=== PATIENT | male | born 1960 | race Caucasian/White ===

== ENCOUNTER 2019-08-14 05:06 | Inpatient (IN) ==
--- NOTE | 2019-08-08 10:28 | EKG Report ---
Test Performed on : 08/08/2019 10:19:59 AM Test Reason : PAT Blood Pressure : / mmHG Vent. Rate : 070 BPM Atrial Rate : 070 BPM P-R Int : 188 ms QRS Dur : 092 ms QT Int : 398 ms P-R-T Axes : 017 -09 022 degrees QTc Int : 429 ms Normal sinus rhythm. Normal ECG When compared with ECG of 30-NOV-2012 12:33, Vent. rate has decreased BY 48 BPM Confirmed by Domo MORALES, Shahbaz Pearce ([id number]) on 08/12/2019 9:25:19 AM
[2019-08-08 10:32] LABS: HEMATOCRIT 51.9 % (42.0-52.0); HEMOGLOBIN 17.5 g/dL (14.0-18.0); MCH 28.5 PG (27-31); MCHC 33.7 g/dL (33-37); MCV 84.5 FL (81-99); MPV 11.5 FL (7.4-10.4); RBC 6.14 XMIL (4.7-6.1); RDW 13.9 % (11.5-14.5); WBC 11.79 X1000 (4.8-10.8)
[2019-08-08 10:54] LABS: AGAP 12; BUN 20 mg/dL (8-22); CALCIUM 9.7 mg/dL (8.8-10.2); CHLORIDE 95 mmol/L (98-107); COSMO 279; CREATININE 1.2 mg/dL (0.7-1.2); ESTIMATED GFR > 60; GLUCOSE 109 mg/dL (70-104); POTASSIUM 3.5 mmol/L (3.5-5.1); SODIUM 138 mmol/L (136-145); TCO2 31 mmol/L (25-35)
[2019-08-14] MEDS ORDERED: ENTEREG ONE (05:41)
[2019-08-14] MEDS ORDERED: LR 1,000 ML ONE (05:42)
[2019-08-14] MEDS ORDERED: INVANZ 1 GM/NS 1 GM/50 ML IVPB ONE (05:42)
[2019-08-14] MEDS ORDERED: FENTANYL ONE (06:17)
[2019-08-14] MEDS ORDERED: DIPRIVAN 1% ONE (06:18)
[2019-08-14] MEDS ORDERED: QUELICIN (DOSE) ONE (06:19)
[2019-08-14] MEDS ORDERED: XYLOCAINE-MPF 2% ONE (06:19)
[2019-08-14] MEDS ORDERED: ZOFRAN ONE (06:19)
[2019-08-14] MEDS ORDERED: ZEMURON ONE ×2 (06:19→08:02)
[2019-08-14] MEDS ORDERED: SENSORCAINE-MPF 0.5%/EPI 1:200,000 ONE (06:39)
[2019-08-14] MEDS ORDERED: BRIDION ONE (06:44)
[2019-08-14] MEDS ORDERED: DECADRON ONE (07:11)
[2019-08-14] MEDS ORDERED: OFIRMEV 1000 MG/ISOTONIC SOLN 1,000 MG/100 ML BOTTLE ONE (07:11)
[2019-08-14] MEDS ORDERED: NEO-SYNEPHRINE ONE (07:19)
[2019-08-14 07:45] LABS: URINE SOURCE CATH
[2019-08-14 07:52] LABS: BILIRUBIN URINE NEGATIVE (NEGATIVE); BLOOD URINE TRACE (NEGATIVE); COLOR YELLOW; GLUCOSE URINE NEGATIVE (NEGATIVE); KETONE URINE TRACE mg/dL (NEGATIVE); LEUKOCYTES URINE NEGATIVE (NEGATIVE); NITRITE URINE NEGATIVE (NEGATIVE); PROTEIN URINE NEGATIVE (NEGATIVE); SP GRAVITY URINE 1.021; TURBIDITY URINE CLEAR (CLEAR); UROBILINOGEN URINE NORMAL (NORMAL)
[2019-08-14 07:54] LABS: UR EPITHELIAL CELLS <10 /HPF (<10); URINE BACTERIA NEGATIVE /HPF; URINE RBC <10 /HPF (<10); URINE WBC <10 /HPF (<10)
[2019-08-14] MEDS: DILAUDID ONE ×6 (09:24→10:05)
[2019-08-14] MEDS ORDERED: NS 1,000 ML ONE (09:33)
[2019-08-14] MEDS ORDERED: DILAUDID IV PRN (10:35)
[2019-08-14] MEDS ORDERED: ZOFRAN IV PRN (10:35)
[2019-08-14] MEDS: NS 1,000 ML IV SCH ×4 (12:24→20:21)
--- NOTE | 2019-08-14 14:28 | OPERATIVE NOTE ---
PROCEDURE DATE: 08/14/2019 PROCEDURE PERFORMED: 1. Laparoscopic assisted mobilization of splenic flexure. 2. Open sigmoid colon resection with primary anastomosis. SURGEON: Nicolas Warner MD. CONTRACTS ADMINISTRATOR: David. PREOPERATIVE DIAGNOSIS: Recurrent sigmoid diverticulosis. POSTOPERATIVE DIAGNOSIS: Recurrent sigmoid diverticulosis. DESCRIPTION OF PROCEDURE: Satisfactory general endotracheal anesthesia was achieved. The patient was placed in Thiago stirrups. The abdomen was prepped and draped in a sterile fashion. We anesthetized the skin at each trocar site. We began at the base of the umbilicus, incised the skin, and carried our incision down the fascia, scored the fascia, introduced 11 trocar Optiview technique. We insufflated through this trocar. Under direct visualization, we introduced another 11 trocar in the midepigastrium. We introduced a 5 trocar in the left lower quadrant and one in the right lower quadrant. We placed the patient in Trendelenburg and airplaned him to the right. We then incised the white line of Toldt and used the LigaSure to dissect the adhesions away from the anterior abdominal wall in the left gutter. We extended our incision in the white line of Toldt inferiorly down to the peritoneal reflection we then airplaned to the other direction and scored the peritoneum and again divided the peritoneum down to the peritoneal reflection. We then placed the patient in reverse Trendelenburg and extended our incision along the white line of Toldt up to the splenic flexure. We then retracted the omentum medially and divided the splenocolic ligament. We then raised up the omentum and entered the lesser sac in the mid transverse colon and then began taking the omentum off the distal transverse colon all the way to the splenic flexure. We then incised the tissue to the distal transverse colon so that we could mobilize the splenic flexure and reflected caudad to give us more length. We mobilized the left colon over toward the midline so that we could extend it straight down toward the pelvis as we needed. After completing this mobilization we then flattened the patient and removed our trocars and decompressed the abdomen. We then made an incision from below the umbilicus down to the pubis. We carried our incision through the subcutaneous tissue between the muscle and into the abdominal cavity. The Bookwalter retractor was placed. We were satisfied with the mobilization of our colon. We then chose an area in the distal descending colon where we could clean off the colon, divide it with a NICHOLAS 60 blue cartridge. We then proceeded to divide the mesentery of the sigmoid using the open LigaSure device. We then went from proximal to distal. We stayed relatively close to the colon to preserve the nerves in the pelvis and we then reached the distal extent of our dissection not quite to the peritoneal reflection but the normal appearing proximal rectum or distal sigmoid. It was here we cleaned off the posterior aspect of the colon and then placed our 3-0 silks in a Lembert fashion in the posterior wall of the distal sigmoid and distal descending colon. After placing these stitches we amputated the sigmoid and handed it off. We then excised the staple line proximally so we had the open end of both ends of the colon. We then used a 3-0 Polysorb running locking stitch posteriorly changed to a [place] stitch anteriorly and this completed our inner layer. We then used 3-0 silks in a Lembert fashion anteriorly to complete a 2 layered sewn closure. We were satisfied that there was no excess tension on the suture line. We changed gloves at this point, flattened the patient, irrigated out the pelvis. Hemostasis was satisfactory. We inspected the left upper quadrant and did not see any bleeding from the splenic flexure mobilization. We closed the fascia at the epigastric trocar site with a 2-0 Polysorb stitch. We then proceeded to close the perineum of our hypogastric incision with a running 2-0 Polysorb. We closed the skin at the fascia with a running #2 Prolene. We irrigated the subcutaneous tissue. The skin was then closed at each incision with rosa. Sterile dressings were applied. He tolerated it well and was sent to the recovery room in satisfactory condition. cc: Nicolas Warner MD
[2019-08-14] MEDS: OFIRMEV 1000 MG/ISOTONIC SOLN 1,000 MG/100 ML BOTTLE IV SCH ×2 (14:31→20:22)
[2019-08-14] MEDS: LOVENOX SUBQ SCH (20:22)
[2019-08-14] MEDS: PERIDEX MT SCH (20:22)
--- NOTE | 2019-08-14 22:15 | GENERAL SURGERY PROGRESS NOTE ---
DATE: 08/14/2019 Mr. Callejas is doing generally well. His bandage is dry. His hemodynamics were good. He is comfortable. Plan will be to check his labs in the morning and do a good pulmonary toilet. cc: Nicolas Warner MD
[2019-08-15] MEDS: OFIRMEV 1000 MG/ISOTONIC SOLN 1,000 MG/100 ML BOTTLE IV SCH ×3 (00:58→09:32)
[2019-08-15] MEDS: ULTRAM PO PRN ×3 (06:00→19:06)
[2019-08-15] MEDS: NS 1,000 ML IV SCH (06:00)
[2019-08-15 06:43] LABS: EOS# 0.04 X1000 (0.0-0.7); EOS% 0.3 % (0.0-10.0); HEMOGLOBIN 16.2 g/dL (14.0-18.0); IMM GRAN# 0.02 X1000 (0.0-0.04); IMM GRAN% 0.1 % (0.0-0.5); LYMPH# 1.13 X1000 (1.2-3.4); LYMPH% 7.3 % (20.5-51.1); MCH 27.9 PG (27-31); MCHC 33.1 g/dL (33-37); MCV 84.3 FL (81-99); MONO# 0.72 X1000 (0.11-0.59); MONO% 4.6 % (1.7-9.3); MPV 11.8 FL (7.4-10.4); NEUT% 87.7 % (42.2-75.2); PLT 236 X1000 (130-400); RBC 5.81 XMIL (4.7-6.1); RDW 13.3 % (11.5-14.5); WBC 15.51 X1000 (4.8-10.8)
[2019-08-15 07:35] LABS: AGAP 10; BUN 15 mg/dL (8-22); CALCIUM 9.2 mg/dL (8.8-10.2); CHLORIDE 97 mmol/L (98-107); COSMO 278; ESTIMATED GFR > 60; GLUCOSE 121 mg/dL (70-104); POTASSIUM 3.8 mmol/L (3.5-5.1); SODIUM 138 mmol/L (136-145); TCO2 31 mmol/L (25-35)
[2019-08-15] MEDS: TENORMIN PO SCH (09:32)
[2019-08-15] MEDS: PERIDEX MT SCH ×3 (09:32→20:14)
[2019-08-15] MEDS: HYGROTON PO SCH (09:35)
[2019-08-15] MEDS: ENTEREG PO SCH ×3 (09:35→20:14)
[2019-08-15] MEDS ORDERED: NS 1,000 ML IV SCH (12:45)
--- NOTE | 2019-08-15 16:02 | GENERAL SURGERY PROGRESS NOTE ---
DATE: 08/15/2019 He is doing well. He denies nausea. He says he has been passing flatus. He wants his Pedroza out and wants to be [place] [address], hemoglobin 16.2. Chemistry is fine. PLAN: The plan will be to remove his Pedroza, cut his IV rate down. We will start him on clear liquids. cc: Nicolas Warner MD
[2019-08-15] MEDS: LOVENOX SUBQ SCH ×2 (19:48→20:15)
[2019-08-16] MEDS ORDERED: NS 1,000 ML IV SCH (07:40)
[2019-08-16] MEDS ORDERED: NORCO-5 PO PRN (07:41)
[2019-08-16] MEDS: PERIDEX MT SCH ×2 (10:25→20:15)
[2019-08-16] MEDS: ENTEREG PO SCH ×2 (10:25→20:15)
[2019-08-16] MEDS: HYGROTON PO SCH (10:26)
[2019-08-16] MEDS: TENORMIN PO SCH (10:26)
--- NOTE | 2019-08-16 14:15 | GENERAL SURGERY PROGRESS NOTE ---
DATE: 08/16/2019 Mr. Callejas is doing generally well. He is afebrile. Heart rate 61, blood pressure 156/100, he has tolerated liquids okay. He has active bowel sounds. He is passing flatus. He has been ambulatory and urinating satisfactorily. The plan is to advance him to full liquids today possibly solids on Monday and probably home Monday night or Monday morning. [facility] will cover in my absence. cc: Nicolas Warner MD
[2019-08-16] MEDS: LOVENOX SUBQ SCH (20:15)
[2019-08-17] MEDS: ULTRAM PO PRN (03:13)
[2019-08-17] MEDS: ENTEREG PO SCH ×2 (07:40→09:40)
[2019-08-17] MEDS: PERIDEX MT SCH ×2 (07:40→09:40)
[2019-08-17] MEDS: HYGROTON PO SCH (09:40)
[2019-08-17] MEDS: TENORMIN PO SCH (09:40)
[2019-08-17 12:57] VITALS: BP 138/97
--- NOTE | 2019-08-17 13:35 | GENERAL SURGERY PROGRESS NOTE ---
DATE: 08/17/2019 SUBJECTIVE: The patient seems to be doing well. He is tolerating a full liquid diet. He has had a bowel movement. OBJECTIVE: Vital Signs: Patient is currently afebrile. His vital signs are stable. General: No acute distress. Cardiovascular: Regular rate and rhythm. Lungs: Grossly clear. Abdomen: Soft, appropriately tender. Bowel sounds auscultated. ASSESSMENT AND PLAN: A 58-year-old gentleman, currently postoperative day #3 from sigmoid resection. Postop state at this time, patient has had return of bowel function. He is doing well. We will transition over to a regular diet and see how he does. If he seems to do well and really wants to go home, may consider discharge, but if not, we will consider discharge in the morning. cc: MD Nicolas Cagle MD
--- NOTE | 2019-08-21 05:54 | DISCHARGE SUMMARY ---
ADMISSION DATE: 08/14/2019 DISCHARGE DATE: 08/17/2019 PRIMARY DISCHARGE DIAGNOSIS: Recurrent sigmoid diverticulitis. POSTOPERATIVE DIAGNOSIS: Recurrent sigmoid diverticulitis. PRIMARY PROCEDURE: Laparoscopic-assisted mobilization of splenic flexure and open sigmoid colon resection with primary anastomosis. HISTORY: This is a 58-year-old gentleman who had recurrent diverticulitis and desired resection of his sigmoid due to the recurrent symptoms. He was prepped as an outpatient, brought in on 08/14/2019 and underwent the above-noted procedure. Postoperatively, he did generally well. His Pedroza was removed. On the 1st postoperative day, he was started on clear liquids. He tolerated liquids, we advanced his diet. By 08/17/2019, he was tolerating food. His bowels had moved. It is felt he could be discharged home. His wound was fine. So, we discussed wound care with him. He will return to the office in a week. cc: Nicolas Warner MD
== END 2019-08-17 13:35 | disposition home or self-care (01) | DRG 331 ==
LOC: SURHOLD 05:06 → 4N 07:34
PROVIDERS: ADMIT Surgery; ATTEND Surgery